=== PATIENT | male | born 1995 | race Caucasian/White ===

== ENCOUNTER 2021-06-27 15:25 | Emergency (ER) | payer MEDICAID ==
[~2021-06-27] VITALS: Ht 170.2 cm; Wt 100.0 kg
[2021-06-27 15:29] VITALS: BP 145/95; PULSE 93; TEMP 98.2
== END 2021-06-27 16:14 | disposition home or self-care (01) ==
LOC: COL.ER 15:25
DX: E16.2 Hypoglycemia, unspecified (principal); M54.50 Low back pain, unspecified

== ENCOUNTER 2021-07-20 12:06 | Emergency (ER) | payer MEDICAID ==
[~2021-07-20] VITALS: Ht 170.2 cm; Wt 95.5 kg
[2021-07-20 12:23] VITALS: BP 127/84; PULSE 91; TEMP 98
[2021-07-20] MEDS ORDERED: NORCO 325 MG-51 TAB PO ×2 (12:33→12:34)
== END 2021-07-20 12:50 | disposition home or self-care (01) ==
LOC: COL.ER 12:06
DX: S92.402A Displaced unspecified fracture of left great toe, initial encounter for closed fracture (principal); F17.290 Nicotine dependence, other tobacco product, uncomplicated; W22.8XXA Striking against or struck by other objects, initial encounter

== ENCOUNTER 2021-08-23 08:52 | Emergency (ER) | payer MEDICAID ==
[~2021-08-23 08:52] MED LIST: NORCO 325 MG-51 TAB PO
== END 2021-08-23 09:37 | disposition left against medical advice (07) ==
LOC: COL.ER 08:52
DX: R53.81 Other malaise (principal)

== ENCOUNTER 2023-03-20 02:20 | Emergency (ER) | payer BC, MEDICAID ==
[~2023-03-20] VITALS: Ht 170.2 cm; Wt 104.5 kg
[~2023-03-20 02:20] MED LIST changes: +CEPHALEXIN500 M1 PO
[2023-03-20 02:24] VITALS: TEMP 98.1
[2023-03-20 02:47] LABS: BASO % 0.5 % (0.0-2.0); EOS # 0.1 K/mm3 (0.0-0.7); EOS % 1.4 % (0.0-4.0); GRAN % 58.7 % (42.2-75.2); HEMATOCRIT 45.2 % (42.0-52.0); HEMOGLOBIN 16.1 g/dl (13.5-18.0); LYMPH # 2.9 K/mm3 (1.2-3.4); LYMPH % 33.3 % (20.0-51.0); MEAN CELL VOLUME 87 fl (80.0-100.0); MEAN CORPUSCULAR HEMOGLOBIN 31 pg (27-31); MEAN CORPUSCULAR HGB CONC 36 g/dl (33.0-37.0); MEAN PLATELET VOLUME 8.9 fl (7.4-10.4); MONO # 0.5 K/mm3 (0.1-0.6); MONO % 5.6 % (1.7-9.3); PLATELET COUNT 196 K/mm3 (130-400); RED BLOOD COUNT 5.21 M/mm3 (4.20-5.60); REDCELL DISTRIBUTION WIDTH-CV 11.9 % (11.5-14.5)
[2023-03-20 02:54] LABS: INR 1.1 (0.8-3.0); PROTHROMBIN TIME 11.6 SECONDS (9.7-12.8)
[2023-03-20 02:57] LABS: PARTIAL THROMBOPLASTIN TIME 34.3 SECONDS (26.0-37.0)
[2023-03-20 03:07] LABS: ALANINE AMINOTRANSFERASE 55 U/L (0-55); ALBUMIN 3.9 gm/dL (3.5-5.0); ALCOHOL(ethanol),MEDICAL 119 mg/dL (0-10); ALKALINE PHOSPHATASE 58 U/L (40-150); ANION GAP 12 mmol/L (7-16); AST,SGOT 28 U/L (5-34); BILIRUBIN,TOTAL 0.6 mg/dL (0.2-1.2); BLOOD UREA NITROGEN 10 mg/dL (9-21); CALCIUM 9.2 mg/dL (8.4-10.2); CARBON DIOXIDE 21 mmol/L (22-29); CHLORIDE 108 mmol/L (98-107); CREATININE, serum 0.95 mg/dL (0.72-1.25); GLUCOSE 116 mg/dL (70-99); POTASSIUM 3.4 mmol/L (3.5-4.5); SODIUM 141 mmol/L (136-145); TOTAL PROTEIN 6.3 gm/dL (6.2-8.1)
[2023-03-20 03:29] LABS: THYROID STIMULATING HORMONE 0.852 uIU/mL (0.350-4.940)
[2023-03-20 03:39] LABS: TROPONIN-I < 0.010 ng/mL (0.00-0.033)
[2023-03-20 04:00] VITALS: BP 103/64; PULSE 95
== END 2023-03-20 04:00 | disposition home or self-care (01) ==
LOC: COL.ER 02:20
PROVIDERS: Emergency Medicine
DX: R07.89 Other chest pain (principal); F10.129 Alcohol abuse with intoxication, unspecified; E87.6 Hypokalemia; Z87.09 Personal history of other diseases of the respiratory system; Y90.5 Blood alcohol level of 100-119 mg/100 ml

== ENCOUNTER 2023-07-07 23:41 | Emergency (ER) | payer BC, MEDICAID ==
[~2023-07-07] VITALS: Ht 170.2 cm; Wt 94.5 kg
[2023-07-07 23:45] VITALS: TEMP 98.3
[2023-07-08] MEDS ORDERED: NS 1,000 ML IV ONE (00:15)
[2023-07-08] MEDS ORDERED: Ondansetron 4 MG/2 ML VIAL IV PRN (00:15)
[2023-07-08] MEDS ORDERED: Pantoprazole 40 MG in NS 10 ML IV ONE (00:15)
[2023-07-08 00:40] LABS: BASO % 0.4 % (0.0-2.0); EOS # 0.1 K/mm3 (0.0-0.7); EOS % 1.2 % (0.0-4.0); GRAN # 5.9 K/mm3 (1.4-6.5); GRAN % 59.5 % (42.2-75.2); HEMATOCRIT 47.2 % (42.0-52.0); HEMOGLOBIN 16.3 g/dl (13.5-18.0); LYMPH # 3.2 K/mm3 (1.2-3.4); LYMPH % 32.5 % (20.0-51.0); MEAN CELL VOLUME 89 fl (80.0-100.0); MEAN CORPUSCULAR HEMOGLOBIN 31 pg (27-31); MEAN CORPUSCULAR HGB CONC 35 g/dl (33.0-37.0); MEAN PLATELET VOLUME 9.1 fl (7.4-10.4); MONO # 0.6 K/mm3 (0.1-0.6); MONO % 5.8 % (1.7-9.3); PLATELET COUNT 250 K/mm3 (130-400); REDCELL DISTRIBUTION WIDTH-CV 11.9 % (11.5-14.5)
[2023-07-08 00:44] LABS: ALBUMIN 3.7 g/dL (3.5-5.0); BILIRUBIN,TOTAL 0.6 mg/dL (0.2-1.2); CALCIUM 8.9 mg/dL (8.4-10.2); CREATININE, serum 1.06 mg/dL (0.72-1.25); POTASSIUM 3.4 mEq/L (3.5-4.5); TOTAL PROTEIN 6.4 g/dl (6.2-8.1)
[2023-07-08] MEDS ORDERED: PROTONIX 40MG T40 MG PO (03:08)
[2023-07-08 03:27] VITALS: BP 127/66; PULSE 78
== END 2023-07-08 03:29 | disposition home or self-care (01) ==
LOC: COL.ER 23:41
PROVIDERS: Personal Emergency Response Attendant
DX: K29.70 Gastritis, unspecified, without bleeding (principal); F10.129 Alcohol abuse with intoxication, unspecified; Y90.6 Blood alcohol level of 120-199 mg/100 ml
CPT/HCPCS: C9113; J2405; J7030